=== PATIENT | male | born 1985 | race Hispanic/Latino ===

== ENCOUNTER 2019-09-20 16:43 | Observation (INO) | payer MEDICAID, OTHER ==
[2019-09-20 17:57] LABS: #Basophils 0.1 thou/uL (0.0-0.2); #Eosinphils 0.3 thou/uL (0.0-0.7); #Lymphocytes 1.3 thou/uL (1.20-3.40); #Monocytes 0.5 thou/uL (0.11-0.59); #Neutrophils 8.3 thou/uL (1.40-6.50); %Basophils 0.8 % (0.0-1.0); %Lymphocytes 12.6 % (21.0-51.0); %Monocytes 4.9 % (0.0-10.0); %Neutrophils 78.9 % (42.0-75.0); Hemoglobin 11.6 g/dL (14.0-18.0); Mean Corpuscular HGB CONC 33.7 g/dL (32.0-36.0); Mean Corpuscular Hemoglobin 27.7 pg (27.0-31.0); Mean Corpuscular Volume 82.3 fL (78.0-98.0); Mean Platelet Volume 7.2 fL (7.4-10.4); Platelet Count 453 thou/uL (130-400); RBC Distribution Width 13.4 % (11.5-14.5); Red Blood Cell (RBC) Count 4.19 mill/uL (4.70-6.10); White Blood Cell (WBC) Count 10.6 thou/uL (4.8-10.8)
[2019-09-20 18:08] LABS: ALT (SGPT) 15 U/L (8-55); AST (SGOT) 22 U/L (5-34); Albumin 2.2 g/dL (3.5-5.0); Alkaline Phosphatase 138 U/L (40-110); Anion Gap 12 mmol/L (10-20); BUN (Urea Nitrogen) 20 mg/dL (8.9-20.6); Bilirubin, Total 0.2 mg/dL (0.2-1.2); CK (CPK) 312 U/L (30-200); Calc. Creatinine Clearance 0 mL/min (70-130); Calcium 8.1 mg/dL (7.8-10.44); Carbon Dioxide 22 mmol/L (22-29); Chloride 101 mmol/L (98-107); Estimated GFR-MDRD 37; Globulin 3.2 g/dL (2.4-3.5); Glucose 272 mg/dL (70-105); Lipase 11 U/L (8-78); Potassium 4.8 mmol/L (3.5-5.1); Protein, Total 5.4 g/dL (6.0-8.3); Sodium 130 mmol/L (136-145)
[2019-09-20 18:25] LABS: Acetaminophen Less than 6.0 mcg/mL (10.0-30.0); Alcohol Less than 10 mg/dL (Less than 10); Salicylate Less than 8.0 mg/dL (15.0-30.0)
--- NOTE | 2019-09-20 18:25 | RAD ---
PORTABLE CHEST ONE VIEW: 09/20/19 at 6:08 p.m. HISTORY: Dyspnea. FINDINGS: The heart size is normal. The lungs are expanded without focal areas of consolidation, pneumothoraces or pleural effusions. IMPRESSION: No radiographic evidence of acute cardiopulmonary process. POS: KAYCEEA
--- NOTE | 2019-09-20 19:23 | PDOC.FPRHP ---
- History of Present Illness Chief Complaint: diffuse swelling History of Present Illness: Patient was hospitalized in the [facility] from 09/15 to 09/19 for bright red blood per rectum, anemia, uncontrolled diabetes, and acute renal failure. He states he went to rehab and they noted his BP to be elevated and his blood glucose to be remarkably high and sent him to ED. There he was noted to be FOBT + and complained of bright red blood NC, however he states no scopes or imaging modalities were performed. His hb did drop from 7.9 to 6.4 and he received 2 units of PRBC (1 on 09/15 and 1 on 09/16). He came to the [facility] ER for increasing, diffuse swelling that started acutely at 1700 on 09/19/2019. The swelling is generalized, he complains of the most significant swelling being in his face, but also his abdomen and scrotum. He is complaining of a headache and peeing 2x his normal amount. He states his sugars have been elevated into the 400s. He states his last use of illegal drugs was 15 days ago. He states that his BP has been high. He also states that he was discharged with new medications from the [facility]. Upon review, he was restarted on Lisinopril 10mg, and folic acid and ferrous sulfate were added to his regimen. ED Course: 1g tylenol - Allergies/Adverse Reactions Allergies Allergy/AdvReac Type Severity Reaction Status Date / Time No Known Drug Allergies Allergy Verified 09/20/19 22:13 - Home Medications Medication Instructions Recorded Confirmed Type Amlodipine [Norvasc] 5 mg PO DAILY 09/20/19 09/20/19 History Ferrous Sulfate [Feosol] 325 mg PO DAILY 09/20/19 09/20/19 History Folic Acid [Folvite] 1 mg PO DAILY 09/20/19 09/20/19 History Insulin Detemir [Levemir] 25 unit SQ BID 09/20/19 09/20/19 History Lisinopril 10 mg PO DAILY 09/20/19 09/20/19 History Pantoprazole [Protonix] 40 mg PO DAILY 09/20/19 09/20/19 History Phenytoin Sodium Extended 100 mg PO TID 09/20/19 09/20/19 History - History PMHx: HTN, DM type I, Hx methamphetamine use, unknown seizure disorder PSHx: Right knee surgery, Surgery for forneir's gangrene FHx: Grandmother and grandfather with DM on father's side Social: Patient with substance use. States last used methamphetamines 15 days ago. Patient reports extensive alcohol use but quit 2 years ago. - Review of Systems General: reports: weight/appetite/sleep changes (Increase in weight). denies: fever/chills Eyes: denies: eye pain, vision changes ENT: denies: nasal congestion, rhinorrhea Respiratory: denies: cough, congestion, shortness of breath Cardiovascular: reports: edema. denies: chest pain, palpitation Gastrointestinal: denies: nausea, vomiting, diarrhea, abdominal pain Genitourinary: reports: polyuria. denies: dysuria, discharge Skin: denies: rashes, lesions Musculoskeletal: denies: pain, tenderness Neurological: denies: numbness, syncope Psychological: denies: anxiety, depression - Vital signs 09/20/19 21:09 Temperature 97.9 F Pulse Rate 95 Blood Pressure 181/110 H [Semi-Fowlers] Respiratory 20 Rate O2 Sat by Pulse 97 Oximetry Oxygen Delivery Room Air Method - Physical Exam Constitutional: NAD, awake, alert and oriented -Constitutional: Face is diffusely swollen, eyes are swollen shut HEENT: grossly normal hearing, MMM -HEENT: Cannot examine eyes due to swelling. No erythema or discharge present. Neck: supple, trachea midline, no LAD Heart: RRR, normal S1/S2, no murmurs/rubs/gallops -Heart: Trace edema BLE Lungs: CTAB, no respiratory distress, good air movement Abdomen: soft, non-tender, bowel sounds present Musculoskeletal: normal structure, normal tone Neurological: no focal deficit Skin: no rash/lesions, good turgor Heme/Lymphatic: no unusual bruising or bleeding, no purpura, no petechia Psychiatric: normal mood and affect, good judgment and insight FMR H&P: Results - Labs Result Diagrams: 09/20/19 19:27 09/20/19 16:51 Lab results: WBC 10.6 thou/uL (4.8-10.8) 09/20/19 16:51 Hgb 11.6 g/dL (14.0-18.0) L 09/20/19 16:51 Hct 34.5 % (42.0-52.0) L 09/20/19 16:51 MCV 82.3 fL (78.0-98.0) 09/20/19 16:51 Plt Count 453 thou/uL (130-400) H 09/20/19 16:51 Neutrophils % 78.9 % (42.0-75.0) H 09/20/19 16:51 Sodium 130 mmol/L (136-145) L 09/20/19 16:51 Potassium 4.8 mmol/L (3.5-5.1) 09/20/19 16:51 Chloride 101 mmol/L (98-107) 09/20/19 16:51 Carbon Dioxide 22 mmol/L (22-29) 09/20/19 16:51 BUN 20 mg/dL (8.9-20.6) 09/20/19 16:51 Creatinine 2.05 mg/dL (0.7-1.3) H 09/20/19 16:51 Glucose 272 mg/dL (70-105) H 09/20/19 16:51 Calcium 8.1 mg/dL (7.8-10.44) 09/20/19 16:51 Total Bilirubin 0.2 mg/dL (0.2-1.2) 09/20/19 16:51 AST 22 U/L (5-34) 09/20/19 16:51 ALT 15 U/L (8-55) 09/20/19 16:51 Alkaline Phosphatase 138 U/L (40-110) H 09/20/19 16:51 Ammonia 31 umol/L (18-72) 09/20/19 18:49 Creatine Kinase 312 U/L (30-200) H 09/20/19 16:51 B-Natriuretic Peptide 394.0 pg/mL (0-100) H 09/20/19 16:51 Serum Total Protein 5.4 g/dL (6.0-8.3) L 09/20/19 16:51 Albumin 2.2 g/dL (3.5-5.0) L 09/20/19 16:51 Lipase 11 U/L (8-78) 09/20/19 16:51 - Radiology Interpretation Chest x-ray Status: report reviewed by me (No acute cardiopulmonary process) FMR H&P: A/P - Problem List (1) Seizure disorder Current Visit: Yes Status: Acute Code(s): G40.909 - EPILEPSY, UNSP, NOT INTRACTABLE, WITHOUT STATUS EPILEPTICUS (2) Polysubstance abuse Current Visit: Yes Status: Acute Code(s): F19.10 - OTHER PSYCHOACTIVE SUBSTANCE ABUSE, UNCOMPLICATED (3) Hypertension Current Visit: Yes Status: Acute Code(s): I10 - ESSENTIAL (PRIMARY) HYPERTENSION (4) Diabetes type 1, uncontrolled Current Visit: Yes Status: Acute Code(s): E10.65 - TYPE 1 DIABETES MELLITUS WITH HYPERGLYCEMIA (5) ZEE (acute kidney injury) Current Visit: Yes Status: Acute Code(s): N17.9 - ACUTE KIDNEY FAILURE, UNSPECIFIED (6) Chronic kidney disease Current Visit: Yes Status: Acute Code(s): N18.9 - CHRONIC KIDNEY DISEASE, UNSPECIFIED (7) Anemia Current Visit: Yes Status: Acute Code(s): D64.9 - ANEMIA, UNSPECIFIED - Plan Acute edema: Angioedema d/t Lisinopril vs Transfusion related reaction/edema -Acute onset at 1700 09/19. Not associated with respiratory distress or oropharyngeal swelling. -He had recently been taken off Lisinopril per review of discharge summaries from recent hospitalizations, however he was restarted on it when discharged from [facility]. -Does not appear to be allergic / mast cell mediated. -Will closely monitor vital signs -ESR, CRP, C4 pending -Timing of swelling is not very consistent with transfusion associated circulatory overload, however it is still included in the differential. -DIC Panel revealed elevated D-Dimer, however he does not fit the clinical picture for a PE. Will monitor VS. -BNP elevated, 394. Patient has history of polysubstance abuse. Will order ECHO to rule out HF as contributor to edema. -1 time dose of Lasix for diuresis (elevated BNP, edema, and increase in weight suggest increased fluid status) -1 time dose of Benadryl in case there is an allergic component HTN, poorly controlled -Patient known for non-compliance with medications -Will increase Amlodipine from 5mg to 10mg. -Will discontinue Lisinopril. -Consider adding second agent tomorrow if BP does not improve with diuresis. -Hydralazine 10mg prn q4hr for SBP > 180. Abnormal EKG, with right axis deviation -With BNP of 394 and history of substance abuse, will get ECHO to r/o HF as contributor ZEE on CKD -Baseline Cr difficult to ascertain. Since hospitalization in August he has not returned to Cr < 2. In February-April he was around 1.5. -Cr today 2.05 -Will renally dose medications and monitor with serial BMPs. Gastritis -Scope done 09/12 showed gastritis and gastric polyp. -On protonix 40mg daily Anemia, normocytic -RBC folate and B12 WNL, Iron and TIBC low last hospitalization -Continue iron supplementation, was recently started on folate supplementation, will continue. -Suspect chronic disease as a component vs 2/2 GI bleeding. -Received 2u pRBC 09/15-09/16. Complained of rectal bleeding with wiping. DM type I, uncontrolled -HgA1c 12.2 on 09/15, known poor compliance with medications -Continue Levemir 30 units BID, or equivalent -Moderate SSI, ACHS accuchecks -CC diet -C-peptide <0.1 in 2017 Unknown seizure disorder -Has longstanding history, has been on phenytoin at least since 2017, will continue. Polysubstance abuse -Patient reports last use of meth 15 days ago -UDS negative -Patient neg for HIV, Hepatitis, and Syphilis during most recent hospitalization at [facility] Disposition/LOS: Dispo: Stable, Obs, likely LOS < 48 hours VTE PPX: SCDs, patient has had recent GI bleeding. Code: Full FMR H&P: Upper Level - Pertinent history 33 year old male with frequent hospitalizations in the last month that presents with diffuse swelling, worse in the face. Patient was discharged from [facility] on for upper GI bleed and found to have gastric polyp, gastritis, and hiatal hernia on EGD. Patient's Hg did drop from 10.1 to 7.6, with rebound to 8.3 prior to d/c. No blood products given during that hospitalization. Patient then presented to [facility] (now [facility] the [facility]) for elevated BG. Patient reports that he was at rehab and noted to have a very high BG. He was then sent via EMS to the hospital for further evaluation. His BG during that hospitalization ranged from 76-300. He was discharged on levemir 30 units BID, which is what he was discharged on during [facility] 09/13. Patient's HgA1c was 12.2% , suggesting non-compliance with insulin regimen at home. Patient reports compliance with insulin regimen. Patient's Hg was 7.9 initially but dropped to 6.4. Patient then received 2 units of pRBC's during hospitalization per [facility] notes. Patient reports that he did not have a repeat EGD or colonoscopy done during that hospitalization. He had stool studies done. Patient reports having hemorrhoids. Patient was discharged on 09/19/2019. Patient reports that he started with facial swelling at 17:00 on 09/19/2019. The swelling has progressed and now includes abdomen and legs. He states that he did have scrotal swelling initially, but that has since improved. He is urinating two times more than normal. Patient's weight is also up to 182 Ibs from 151 Ibs from 09/15. Patient denies any associated abdominal pain, N/V/D, shortness of breath, cough , or chest pain. Patient endorses difficulty seeing due to degree of facial swelling. He also endorses headache. - Pertinent findings General: Alert and oriented x3. No acute distress. Resting in bed with lights off. HEENT: Significant periorbital swelling bilaterally. Facial swelling involving cheeks and lips. No apparent involvement of tongue or uvula. Card: Tachycardia, regular rhythm Resp: CTA bilaterally, no acute respiratory distress Ext: Trace bilateral lower extremity swelling Skin: Multiple tattoos. Excoriations on arms. No hives or rashes. - Plan Date/Time: 09/20/191921 IJessica, have evaluated this patient and agree with findings/plan as outlined by paralegal internship resident. Pertinent changes/additions are listed here. Isolated angioedema, suspect 2/2 ANA-I - Significant facial swelling with periorbital swelling, lip swelling; spares tongue and uvula - Sudden onset at 17:00 09/19 - Patient d/c'd home on lisinopril 09/19 after hospitalization - No sign of mast cell mediated or allergic angioedema - Monitor respiratory status closely; no signs of impending respiratory failure at this time - Will discontinue lisinopril and monitor closely; low threshold for intubation if impending respiratory distress seems likely - Will give benadryl x1; although this has not been shown to help with non allergic angioedema - ESR and CRP pending - C4 complement pending - Last blood transfusion was on 09/16, so low suspicion for transfusion associated circulatory overload as this normally happens within 6 hours of transfusion. Additionally, patient is not presenting with respiratory distress suggesting pulmonary edema. CXR with no evidence of fluid overload or pulmonary edema. - TSH WNL, suggesting not related to hypothyroidism - DIC panel with elevated D-dimer and fibrinogen, but otherwise normal; low suspicion for PE given clinical presentation. - BNP elevated at 394. Echo pending to further evaluate if component of heart failure. ZEE on CKD (stage unknown) - Baseline Cr appears to be 1.4, but Cr has been 2.3 since discharge on 09/13 - Cr today 2.05, GFR 37 - Renally dose medications - Continue to monitor - Likely 2/2 uncontrolled HTN and DM type II HTN, uncontrolled - Will adjust home medications - Will d/c lisinopril - Will increase amlodipine to 10 mg per day; likely patient will need additional medication Mixed normocytic anemia - ACD 2/2 chronic kidney disease and iron deficiency anemia 2/2 GI bleed - Patient's hg stable at 11.6/34.5 today - Continue to monitor - Will start on protonix for gastritis Gastritis - Diagnosed during last hospitalization at [facility] on 09/13 via EGD - Will start on protonix - Patient with alcohol abuse history; states quit 2 years ago DM type I, uncontrolled - Suspect poor compliance - HgA1c 12.2% on 09/15 - Continue levemir 30 units BID - Moderate SSI - ACHS accuchecks - CC diet - C-peptide <0.1 on previous visit Right axis deviation on EKG - Will get EKG - Suspect heart strain 2/2 uncontrolled HTN and DM - Will get echo to further evaluate - Patient also has history of methamphetamine abuse Methamphetamine abuse - Patient reports last using 15 days ago - Serum drug screen negative - Urine drug screen pending Thrombocytosis - Likely 2/2 angioedema Multiple tattoos: - Patient neg for HIV, Hepatitis, and Syphilis during previous hospitalizations Seizure disorder: - Continue phenytoin DVT PPX: SCD's (will avoid anticoagulation given recent bleeding episodes) Code Status: Full GI PPX: Protonix Dispo: Stable. Will obs on telemetry. Close monitoring of respiratory status.
[2019-09-20 19:54] LABS: INR-International Normal Ratio 0.9
[2019-09-20 19:55] LABS: D-Dimer Test 2.05 *mcg/mL (0.27-0.43)
[2019-09-20 19:59] LABS: Fibrinogen 508 mg/dL (253-463)
[2019-09-20] MEDS ORDERED: Acetaminophen 500 MG TAB ONE (20:03)
[2019-09-20] MEDS ORDERED: Acetaminophen 325 MG TAB PO PRN (20:09)
[2019-09-20] MEDS ORDERED: Ondansetron ODT 4 MG TAB PO PRN (20:09)
[2019-09-20 20:10] LABS: FSP-Qualitative Normal (Normal)
[2019-09-20 20:11] LABS: Platelet Count 435 thou/uL (130-400)
[2019-09-20] MEDS ORDERED: HumaLOG 300 UNITS/3 ML VIAL SC PRN ×2 (20:16)
[2019-09-20] MEDS ORDERED: Dextrose 50% Abboject 50 ML SYRINGE SLOW IVP PRN (20:16)
[2019-09-20] MEDS ORDERED: Dextrose 5% in Water 1,000 ML IV PRN (20:16)
[2019-09-20 20:17] LABS: Bacteria/HPF None Seen HPF (None Seen); Bilirubin Negative (Negative); Blood, Urine 1+ (Negative); Clarity Clear (Clear); Glucose, Urine (Dipstick) Greater than 1000 mg/dL (Negative); Leukocyte Negative Leu/uL (Negative); Nitrite Negative (Negative); Protein, Urine (Dipstick) 300 mg/dL (Neg-Trace); RBC/HPF 0-3 HPF (0-3); Squamous Epithelial None Seen HPF (0-3); Urobilinogen Normal mg/dL (Less than 2); WBC/HPF 0-3 HPF (0-3)
[2019-09-20 20:28] LABS: Amphetamine Not Detected (NotDetected); Barbiturates Screen Detected (NotDetected); Benzodiazepine Screen Not Detected (NotDetected); Cocaine Metabolite Screen Not Detected (NotDetected); Medtox Control Line Valid? VALID (VALID); Medtox Reader # READER 1; Methadone Not Detected (NotDetected); Methamphetamine Not Detected (NotDetected); Opiate Screen Not Detected (NotDetected); Oxycodone Screen Not Detected (NotDetected); Phencyclidine (PCP) Not Detected (NotDetected); THC/Cannabinoid Screen Not Detected (NotDetected); Tricyclic Screen Not Detected (NotDetected)
[2019-09-20] MEDS ORDERED: diphenhydrAMINE 25 MG CAP PO SCH (20:30)
[2019-09-20] MEDS ORDERED: Furosemide 20 MG/2 ML VIAL SLOW IVP SCH (20:30)
[2019-09-20 21:45] VITALS: BMI 30.3
[2019-09-20] MEDS ORDERED: Amlodipine 10 MG TAB PO SCH (22:15)
[2019-09-20] MEDS: Insulin Glargine 30 UNITS in Pre-Filled Syringe 1 EACH SC SCH (22:28)
[2019-09-21] MEDS: hydrALAZINE 20 MG/ML VIAL SLOW IVP PRN (01:15)
[2019-09-21 05:16] LABS: #Basophils 0.1 thou/uL (0.0-0.2); #Eosinphils 0.3 thou/uL (0.0-0.7); #Lymphocytes 1.4 thou/uL (1.20-3.40); #Monocytes 0.5 thou/uL (0.11-0.59); #Neutrophils 6.1 thou/uL (1.40-6.50); %Basophils 0.8 % (0.0-1.0); %Eosinophils 3.9 % (0.0-10.0); %Lymphocytes 16.7 % (21.0-51.0); %Monocytes 6.4 % (0.0-10.0); %Neutrophils 72.3 % (42.0-75.0); Hemoglobin 10.4 g/dL (14.0-18.0); Mean Corpuscular HGB CONC 33.3 g/dL (32.0-36.0); Mean Corpuscular Hemoglobin 27.8 pg (27.0-31.0); Mean Corpuscular Volume 83.5 fL (78.0-98.0); Mean Platelet Volume 6.6 fL (7.4-10.4); Platelet Count 433 thou/uL (130-400); RBC Distribution Width 13.1 % (11.5-14.5); Red Blood Cell (RBC) Count 3.75 mill/uL (4.70-6.10); White Blood Cell (WBC) Count 8.5 thou/uL (4.8-10.8)
[2019-09-21 05:34] LABS: Anion Gap 9 mmol/L (10-20); BUN (Urea Nitrogen) 19 mg/dL (8.9-20.6); Calc. Creatinine Clearance 65 mL/min (70-130); Calcium 8.1 mg/dL (7.8-10.44); Carbon Dioxide 24 mmol/L (22-29); Chloride 106 mmol/L (98-107); Estimated GFR-MDRD 41; Glucose 181 mg/dL (70-105); Potassium 4.4 mmol/L (3.5-5.1); Sodium 135 mmol/L (136-145)
[2019-09-21] MEDS: Folic Acid 1 MG TAB PO SCH (08:10)
[2019-09-21] MEDS: Amlodipine 10 MG TAB PO SCH (08:10)
[2019-09-21] MEDS: Ferrous Sulfate 325 MG TAB PO SCH (08:10)
[2019-09-21] MEDS ORDERED: Hydrochlorothiazide 25 MG TAB PO SCH (09:00)
[2019-09-21] MEDS: Insulin Glargine 30 UNITS in Pre-Filled Syringe 1 EACH SC SCH ×2 (09:37→20:53)
--- NOTE | 2019-09-21 13:40 | HP ---
I have examined the patient and discussed the case with Dr. Naa George and agree with her assessment and plan. HISTORY OF PRESENT ILLNESS: Mr. Jason is a pleasant 33-year-old male with a history of rectal bleeding, anemia, uncontrolled diabetes. He presented to our ER with facial swelling to the point that his eyes were swollen shut. He had been on lisinopril for CKD. He was admitted with possible angioedema. He had no time evidenced any threatened airway closure. He did not complain of dyspnea or stridor. By the next morning, he felt better although he still had a great deal of periorbital edema that occluded his vision. PHYSICAL EXAMINATION: GENERAL: He is very pleasant, awake and alert. He is in no distress. Again, he has no evidence of respiratory distress or stridor. VITAL SIGNS: His blood pressure is 160/100. His respiratory rate is 18. His room air pulse ox is 97%. EAR, NOSE, and throat. He has bilateral periorbital edema that is nontender. He is unable able to open his eyes to any significant amount. Throat does not show any uvular deviation or edema. NECK: Supple. Cardiac heart rhythm regular. No gallop or murmur noted. LUNGS: Clear without wheezes or rales. He has no evidence of use of accessory muscles. ABDOMEN: Flat and soft without guarding, rebound, or rigidity. NEUROLOGIC: No focal deficits. LABORATORY DATA: [place]: [place] [address], hemoglobin 11.6, hematocrit 34.5 with an MCV of 82.3. His sedimentation rate is elevated at 70. Chemistry: Sodium is 130, potassium 4.8, chloride 101, bicarb 22, BUN 20, creatinine 2.05. Alkaline phosphatase barely elevated at 138. CK very barely elevated at 312, and his troponin is 0.024. ASSESSMENT: Angioedema secondary to NAA inhibitor. PLAN: Supportive care. Continue to observe. As soon as the swelling has abated, we note that this gentleman could see he will be discharged and this will likely be tomorrow. Job ID: [id number]
[2019-09-22] MEDS: hydrALAZINE 20 MG/ML VIAL SLOW IVP PRN (00:13)
--- NOTE | 2019-09-22 05:20 | PDOC.FM ---
- Subjective Subjective: Patient doing well this morning. Still has a somewhat swollen face on left side and reports that he still feels some abdominal distention, but is otherwise improving. - Objective Vital Signs & Weight: Vital Signs (12 hours) Temp Pulse Resp BP BP Pulse Ox 09/22/19 04:00 98.0 F 110 H 18 139/83 98 09/22/19 00:51 112 H 138/72 09/22/19 00:13 106 H 183/106 H 09/22/19 00:09 106 H 18 183/106 H 09/21/19 23:00 97.8 F 102 H 17 190/104 H 97 09/21/19 20:54 175/105 H 09/21/19 19:20 98.1 F 103 H 18 185/101 H 95 Weight Weight 82.554 kg I&O: 09/20/19 09/21/19 09/22/19 06:59 06:59 06:59 Intake Total 900 1040 Output Total 625 Balance 900 415 Result Diagrams: 09/21/19 04:59 09/22/19 04:20 Phys Exam - Physical Examination Constitutional: NAD HEENT: moist MMs, sclera anicteric swollen face, improved Neck: supple, full ROM Respiratory: no wheezing, clear to auscultation bilateral Cardiovascular: RRR, no significant murmur Gastrointestinal: soft, positive bowel sounds slightly distended continued facial edema and abd edema Neurological: non-focal, moves all 4 limbs Deviation from normal: emotionally labile Skin: no rash, normal turgor Dx/Plan (1) Angioedema Code(s): T78.3XXA - ANGIONEUROTIC EDEMA, INITIAL ENCOUNTER Status: Acute (2) ZEE (acute kidney injury) Code(s): N17.9 - ACUTE KIDNEY FAILURE, UNSPECIFIED Status: Acute (3) Chronic kidney disease Code(s): N18.9 - CHRONIC KIDNEY DISEASE, UNSPECIFIED Status: Chronic (4) Diabetes type 1, uncontrolled Code(s): E10.65 - TYPE 1 DIABETES MELLITUS WITH HYPERGLYCEMIA Status: Acute (5) Hypertension Code(s): I10 - ESSENTIAL (PRIMARY) HYPERTENSION Status: Chronic (6) Polysubstance abuse Code(s): F19.10 - OTHER PSYCHOACTIVE SUBSTANCE ABUSE, UNCOMPLICATED Status: Chronic - Plan Plan: Acute edema: Angioedema d/t Lisinopril vs Transfusion related reaction/edema -Acute onset at 1700 09/19. No respiratory distress or oropharyngeal swelling. -Has been on lisinopril lately, likely related -Does not appear to be allergic / mast cell mediated. -Will closely monitor vital signs -ESR elevated -CRP and C4 wnl -Timing of swelling is not very consistent with transfusion associated circulatory overload, however it is still included in the differential. -s/p 1 dose lasix and benadryl HTN, poorly controlled -Patient known for non-compliance with medications -Amlodipine increased from 5mg to 10mg. -Lisinopril discontinued -Started on HCTZ, increase today -Hydralazine 10mg prn q4hr for SBP > 180. Abnormal EKG, with right axis deviation -BNP of 394 -history of substance abuse -echo: EF 55-60%, mild mitral regurg, mild tricuspid regurg ZEE on CKD -Baseline Cr difficult to ascertain. Since hospitalization in August he has not returned to Cr < 2. In February-April he was around 1.5. -Cr today 2.05 -Will renally dose medications and monitor with serial BMPs. Gastritis -Scope done 09/12 showed gastritis and gastric polyp. -Continue protonix 40mg daily Anemia, normocytic -RBC folate and B12 WNL, Iron and TIBC low last hospitalization -Continue iron supplementation, was recently started on folate supplementation, will continue. -Suspect chronic disease as a component vs 2/2 GI bleeding. -Received 2u pRBC 09/15-09/16. Complained of rectal bleeding with wiping. -Will continue to monitor DM type I, uncontrolled -HgA1c 12.2 on 09/15, known poor compliance with medications -Continue Levemir 30 units BID, or equivalent -Moderate SSI, ACHS accuchecks -CC diet -C-peptide <0.1 in 2017 Unknown seizure disorder -Has longstanding history -continue phenytoin Polysubstance abuse -Patient reports last use of meth 15 days ago -UDS negative -Patient neg for HIV, Hepatitis, and Syphilis during most recent hospitalization at [facility] VTE PPX: SCDs, patient has had recent GI bleeding. Dispo: patient's edema has been improving; no respiratory compromise throughout hospitalization. Will possibly d/c today if patient continues to improve Code: Full
[2019-09-22 05:23] LABS: Anion Gap 9 mmol/L (10-20); BUN (Urea Nitrogen) 22 mg/dL (8.9-20.6); Calc. Creatinine Clearance 60 mL/min (70-130); Calcium 7.7 mg/dL (7.8-10.44); Carbon Dioxide 26 mmol/L (22-29); Chloride 108 mmol/L (98-107); Estimated GFR-MDRD 38; Glucose 81 mg/dL (70-105); Potassium 4.1 mmol/L (3.5-5.1); Sodium 139 mmol/L (136-145)
[2019-09-22] MEDS ORDERED: guaiFENesin ER 600 MG TAB PO SCH ×2 (06:00→21:00)
[2019-09-22 08:18] VITALS: TEMP 97.8
[2019-09-22] MEDS: Insulin Glargine 30 UNITS in Pre-Filled Syringe 1 EACH SC SCH (08:28)
[2019-09-22] MEDS: Ferrous Sulfate 325 MG TAB PO SCH (08:29)
[2019-09-22] MEDS: Folic Acid 1 MG TAB PO SCH (08:29)
[2019-09-22] MEDS: Amlodipine 10 MG TAB PO SCH (08:29)
[2019-09-22] MEDS ORDERED: Hydrochlorothiazide 25 MG TAB PO SCH (09:00)
--- NOTE | 2019-09-22 11:19 | PRG ---
DATE OF SERVICE: 09/22/2019 The periorbital edema has greatly improved and Mr. Jason is now able to open both eyes. He is anxious to go home and he will be discharged. Job ID: [id number]
[2019-09-22 11:31] VITALS: BP 163/84
--- NOTE | 2019-09-23 10:23 | DIS ---
DATE OF ADMISSION: 09/20/2019 DATE OF DISCHARGE: 09/22/2019 ADMITTING RESIDENT: Aliya Tomlinson MD. ADMITTING ATTENDING: Salvador Culver MD. DISCHARGE RESIDENT: Naa George MD. DISCHARGE ATTENDING: Salvador Culver MD. CONSULTS: None. PROCEDURES: None. IMAGING: Chest x-ray: No radiographic evidence of acute cardiopulmonary process. Echocardiogram: EF 55% to 60%. Mild mitral regurgitation. Mild tricuspid regurgitation. PRIMARY DIAGNOSES: Angioedema due to lisinopril versus transfusion related reaction/edema. Acute kidney injury on chronic kidney disease. Abnormal EKG with right axis deviation. SECONDARY DIAGNOSES: Poorly controlled hypertension; gastritis; normocytic anemia; type 1 diabetes, uncontrolled; unknown seizure disorder. DISCHARGE MEDICATIONS: 1. 10 mg amlodipine p.o. daily. 2. 325 mg ferrous sulfate p.o. daily. 3. 1 mg folic acid p.o. daily. 4. 25 mg of hydrochlorothiazide p.o. daily. 5. 25 units Levemir subcu b.i.d. 6. 40 mg Protonix p.o. daily. 7. 100 mg phenytoin p.o. t.i.d. DISCONTINUED MEDICATIONS: 1. Lisinopril. 2. P.r.n. Tylenol. 3. Glargine insulin. 4. P.r.n. Zofran. HISTORY OF PRESENT ILLNESS AND HOSPITAL COURSE: The patient is a 33-year-old male with a past medical history of type 1 diabetes, uncontrolled hypertension, polysubstance abuse, anemia with recent workup for GI bleed who was admitted to the hospital for angioedema likely due to recent lisinopril use versus less likely transfusion reaction. The patient was admitted to the [facility] early september for bright red blood per rectum, anemia, and uncontrolled diabetes, and he was given 2 units of packed red blood cells during that time. Due to the time difference between when he got the blood and when he presented to the ER with angioedema, this is less likely to be the cause, however, it still needs to be considered. The patient also was recently started on lisinopril and has been on and off lisinopril in the past, thus this is more likely related to lisinopril use. The patient presented with angioedema of his face, bilateral feet, abdomen, and scrotum. The patient was treated with Lasix and Benadryl and as the patient had no respiratory distress symptoms, was monitored overnight to ensure that he continued to improve without the development of any respiratory symptoms. For his hypertension, HCTZ was added to his medication regimen. When he came into the hospital, his BNP was elevated to 394 and his EKG showed right axis deviation. So an echocardiogram was ordered, see above. The patient was evaluated on the day of discharge, which showed a marked improvement in the edema of his face, abdomen, feet and scrotum. On the day of discharge the patient was stable enough to be discharged home with followup with his primary care provider. DISPOSITION: Stable. DISCHARGE INSTRUCTIONS: 1. Location: Home. 2. Diet: Heart healthy, carb conscious. 3. Activity: As tolerated. 4. Followup: With his primary care provider, Dr. Long at [facility] within 1 week. Job ID: [id number] MTDD
== END 2019-09-22 12:34 | disposition home or self-care (01) ==
LOC: ERS 16:43 → 2SW 19:25
PROVIDERS: ADMIT Emergency Medicine; ATTEND Emergency Medicine
DX: T78.3XXA Angioneurotic edema, initial encounter (principal); I12.9 Hypertensive chronic kidney disease with stage 1 through stage 4 chronic kidney disease, or unspecified chronic kidney disease; E10.22 Type 1 diabetes mellitus with diabetic chronic kidney disease; N18.9 Chronic kidney disease, unspecified; G40.909 Epilepsy, unspecified, not intractable, without status epilepticus; F10.11 Alcohol abuse, in remission; N17.9 Acute kidney failure, unspecified; D63.1 Anemia in chronic kidney disease; F15.10 Other stimulant abuse, uncomplicated; D50.0 Iron deficiency anemia secondary to blood loss (chronic); D47.3 Essential (hemorrhagic) thrombocythemia; Z79.899 Other long term (current) drug therapy
CPT/HCPCS: 36415; 36416; 71045; 80048; 80053; 80306; 80307; 81003; 81015; 82010; 82140; 82550; 83690; 83880; 84443; 84484; 85025; 85049; 85300; 85362; 85379; 85384; 85610; 85652; 85730; 86140; 86160; 87040; 93005; 93306; 96374; 96375; 96376; G0378; J0360; J1815; J1940; Q0163

== ENCOUNTER 2020-10-15 07:56 | Day surgery (SDC) | payer OTHER ==
[2020-10-13 12:57] VITALS: BMI 29.2
[2020-10-15] MEDS ORDERED: Fentanyl 100 MCG/2 ML VIAL ONE ×2 (08:40→09:55)
[2020-10-15 08:43] LABS: #Basophils 0.1 thou/uL (0.0-0.2); #Eosinphils 0.3 thou/uL (0.0-0.7); #Lymphocytes 1.4 thou/uL (1.20-3.40); #Monocytes 0.7 thou/uL (0.11-0.59); #Neutrophils 5.2 thou/uL (1.40-6.50); %Eosinophils 3.7 % (0.0-10.0); %Lymphocytes 18.3 % (21.0-51.0); %Monocytes 8.9 % (0.0-10.0); %Neutrophils 68.1 % (42.0-75.0); Hemoglobin 10.9 g/dL (14.0-18.0); Mean Corpuscular Volume 87.8 fL (78.0-98.0); Mean Platelet Volume 8.3 fL (7.4-10.4); Platelet Count 251 thou/uL (130-400); RBC Distribution Width 15.9 % (11.5-14.5); Red Blood Cell (RBC) Count 3.75 mill/uL (4.70-6.10); White Blood Cell (WBC) Count 7.6 thou/uL (4.8-10.8)
[2020-10-15 09:01] LABS: Anion Gap 12 mmol/L (10-20); BUN (Urea Nitrogen) 35 mg/dL (8.9-20.6); Calc. Creatinine Clearance 23 mL/min (70-130); Calcium 8.4 mg/dL (7.8-10.44); Carbon Dioxide 27 mmol/L (22-29); Chloride 99 mmol/L (98-107); Glucose 267 mg/dL (70-105); Potassium 4.4 mmol/L (3.5-5.1); Sodium 134 mmol/L (136-145)
[2020-10-15] MEDS ORDERED: Dexamethasone 20 MG/5 ML VIAL ONE (09:03)
[2020-10-15] MEDS ORDERED: Ondansetron PF 4 MG/2 ML Vial ONE (09:03)
[2020-10-15] MEDS ORDERED: Bupivacaine HCl 0.5%/Epinephrine 1:200,000/PF 30 ml Vial ONE (09:04)
[2020-10-15] MEDS ORDERED: Bupivacaine 0.25% HCL 30 ML VIAL ONE (09:45)
[2020-10-15] MEDS ORDERED: XYLOCAINE 2%-EPI 1:100,000 20 ML VIAL ONE (09:45)
[2020-10-15] MEDS ORDERED: Lidocaine 2% PF 5 ML VIAL ONE (09:45)
[2020-10-15] MEDS ORDERED: Ioversol 68 % 50 ML VIAL ONE ×2 (09:45→10:41)
[2020-10-15] MEDS ORDERED: Protamine Sulfate 50 MG/5 ML VIAL ONE (09:45)
[2020-10-15] MEDS ORDERED: Heparin 5,000 UNITS/ML VIAL ONE (09:45)
[2020-10-15] MEDS ORDERED: Propofol 1,000 MG/100 ML VIAL IV ONE (09:50)
[2020-10-15] MEDS ORDERED: Propofol 500 MG/50 ML VIAL ONE (09:50)
[2020-10-15] MEDS ORDERED: Midazolam HCl 2 mg/2 ml Vial ONE (09:55)
[2020-10-15] MEDS ORDERED: Heparin 1,000 UNITS/ML VIAL ONE (13:59)
[2020-10-15] MEDS ORDERED: Metoprolol Tartrate 25 MG TAB PO SCH (14:45)
[2020-10-15] MEDS ORDERED: Amlodipine 10 MG TAB PO SCH (14:45)
--- NOTE | 2020-10-15 15:59 | EKG ---
Test Reason : PREOP Blood Pressure : / mmHG Vent. Rate : 085 BPM Atrial Rate : 085 BPM P-R Int : 144 ms QRS Dur : 086 ms QT Int : 386 ms P-R-T Axes : 067 103 084 degrees QTc Int : 459 ms Normal sinus rhythm Rightward axis Borderline ECG Confirmed by DR. Zaynab KNIGHT (3) on 10/15/2020 3:58:54 PM Referred By: ABHISHEK Confirmed By:DR. Zaynab KNIGHT
--- NOTE | 2020-10-15 16:49 | PDOC.OP ---
Operative Note - Operative Note Operative Note: DATE OF PROCEDURE: 10/15/2020 PROCEDURE: Left basilic vein transposition fistula. SURGEON: Tika Naqvi M.D. PREOPERATIVE DIAGNOSIS: End-stage renal failure. POSTOPERATIVE DIAGNOSIS: End-stage renal failure. HISTORY: Patient is a 34-year-old man with end-stage renal failure. He has a left upper arm basilic fistula which requires transposition to be accessible. DESCRIPTION OF PROCEDURE: After informed consent was obtained and appropriate n euromuscular blockade was administered, the patient was taken to the operating room and placed in supine position. The arm was prepped and draped in a standard sterile fashion and adequacy of block was confirmed. The distal basilic vein was dissected out to its confluence with the brachial artery. The basilic vein was then dissected free to the level of its confluence with the axillary vein, ligating side branches as they were encountered. A 12 mm tunneler was obtained and brought up from the antecubital to the axillary area. Heparin was administered systemically and allowed to circulate for 3 minutes. The vein was marked for orientation, clamped and divided obliquely just above the previous anastomosis. The basilic vein was compressed at the level of the axilla and heparinized saline was instilled, distending the vein. The vein was checked for leaks and none were seen. The vein was then flushed with heparinized saline and a bulldog clamp placed at the level of the axilla. The 12 mm tip was removed and a 6 mm tip placed and the basilic vein was secured to this. The basilic vein was drawn down through the subcutaneous tunnel being careful not to twist the vein. This was found easily to reach to the proximal fistula stump. The 2 ends of the fistula were spatulated and an end-to-side anastomosis was created with a running 6-0 Prolene suture with excellent technical result. Prior to completing the anastomosis, the inflow was released, flushing the anastomosis. The anastomosis was then secured, all clamps were removed and hemostasis verified. There was an excellent thrill through the basilic fistula which was readily palpable beneath the skin. The inner arm wound was then irrigated and hemostasis obtained with Bovie electrocautery. The subcutaneous tissues were closed in two layers with 3-0 Monocryl suture following which the skin incision was closed with skin augusto. A surface wound VAC dressing was placed and the arm was wrapped with an Martin wrap. The patient was taken to the recovery room in good condition. Estimated blood loss was minimal. There were no complications. There were no specimens.
== END 2020-10-15 14:55 | disposition home or self-care (01) ==
LOC: SDC 07:56
PROVIDERS: ATTEND Surgery
PROC: 05SC0ZZ Reposition Left Basilic Vein, Open Approach (ICD-10-PCS; principal; 2020-10-15)
DX: I12.0 Hypertensive chronic kidney disease with stage 5 chronic kidney disease or end stage renal disease (principal); E11.22 Type 2 diabetes mellitus with diabetic chronic kidney disease; N18.6 End stage renal disease; F41.9 Anxiety disorder, unspecified; F17.200 Nicotine dependence, unspecified, uncomplicated; E11.42 Type 2 diabetes mellitus with diabetic polyneuropathy; E11.69 Type 2 diabetes mellitus with other specified complication; H54.7 Unspecified visual loss; Z86.73 Personal history of transient ischemic attack (TIA), and cerebral infarction without residual deficits; Z79.4 Long term (current) use of insulin; Z79.899 Other long term (current) drug therapy; Z88.8 Allergy status to other drugs, medicaments and biological substances; Z99.2 Dependence on renal dialysis
CPT/HCPCS: 36415; 36416; 80048; 85025; 93005; 93010; J0690; J1100; J1644; J2001; J2250; J2405; J2704; J2720; J3010; Q9967; S0020

== ENCOUNTER 2021-01-07 14:33 | Outpatient (CLI) | payer OTHER ==
[2020-10-13 05:18] LABS: SARS-CoV-2 PCR by NAA Not Detected (NotDetected)
[2021-01-08 03:28] LABS: SARS-CoV-2 PCR by NAA Not Detected (NotDetected)
== END 2021-01-07 14:34 | disposition home or self-care (01) ==
LOC: LABBT 14:33
PROVIDERS: ATTEND Surgery
DX: Z01.812 Encounter for preprocedural laboratory examination (principal); H33.41 Traction detachment of retina, right eye; Z20.822 Contact with and (suspected) exposure to COVID-19
CPT/HCPCS: 87635; U0003; U0005

== ENCOUNTER 2021-01-11 09:24 | Day surgery (SDC) | payer MEDICARE, MEDICAID ==
[2021-01-10 09:56] VITALS: BMI 28.3
[~2021-01-11 09:24] MED LIST: EPINEPHrine 0.3 MG in Ophthalmic Irrigation Solution 500 ML IRR SCH; Fentanyl 100 MCG/2 ML VIAL ONE; Midazolam HCl 2 mg/2 ml Vial ONE
[2021-01-11] MEDS ORDERED: Insulin Regular 300 UNITS/3 ML VIAL ONE (09:56)
[2021-01-11] MEDS ORDERED: hydrALAZINE 20 MG/ML VIAL ONE (10:37)
[2021-01-11] MEDS ORDERED: Famotidine/PF 20 mg/2ml Vial ONE (10:38)
[2021-01-11] MEDS ORDERED: Cyclopentolate 1% Ophth Drops 15 ML BOT ONE (11:06)
[2021-01-11] MEDS ORDERED: Phenylephrine 2.5% Ophth Soln 5 ML BOT ONE (11:06)
[2021-01-11] MEDS ORDERED: Dextrose 50% Abboject 50 ML SYRINGE ONE (14:18)
[2021-01-11] MEDS ORDERED: Lidocaine 4% PF 5 ML AMP ONE (14:43)
[2021-01-11] MEDS ORDERED: Bupivacaine PF 0.75% SDV 10 ML ONE (14:43)
[2021-01-11] MEDS ORDERED: Ondansetron PF 4 MG/2 ML Vial ONE ×2 (14:43)
[2021-01-11] MEDS ORDERED: Maxitrol 0.1% Opth Oint 3.5 GM TUBE ONE (14:43)
[2021-01-11] MEDS ORDERED: PROPOFOL 200 MG/20 ML VIAL ONE (14:43)
[2021-01-11] MEDS ORDERED: CEFAZOLIN 1 GM VIAL ONE (14:43)
[2021-01-11] MEDS ORDERED: Succinylcholine 200 MG/10 ml SYRINGE FS ONE (14:43)
[2021-01-11] MEDS ORDERED: Triamcinolone 40 MG/ML VIAL ONE (14:43)
[2021-01-11] MEDS ORDERED: Lidocaine 1% PF 5 ML VIAL ONE ×2 (14:43)
[2021-01-11] MEDS ORDERED: Metoclopramide HCl 10 MG/2 ML VIAL ONE ×2 (14:43)
[2021-01-11] MEDS ORDERED: Heparin 1,000 UNITS/ML VIAL ONE (18:08)
== END 2021-01-11 18:55 | disposition home or self-care (01) ==
LOC: SDC 09:24
PROVIDERS: ATTEND Ophthalmology Retina Specialist
PROC: 08T43ZZ Resection of Right Vitreous, Percutaneous Approach (ICD-10-PCS; principal; 2021-01-11)
PROC: 08QE3ZZ Repair Right Retina, Percutaneous Approach (ICD-10-PCS; 2021-01-11)
DX: H33.41 Traction detachment of retina, right eye (principal); H43.11 Vitreous hemorrhage, right eye; Z79.4 Long term (current) use of insulin; Z79.899 Other long term (current) drug therapy; Z88.5 Allergy status to narcotic agent; Z88.8 Allergy status to other drugs, medicaments and biological substances
CPT/HCPCS: 36416; J0171; J0360; J0690; J1644; J1815; J2250; J2405; J2704; J2765; J3010; J3301; J3490; S0028

== ENCOUNTER 2021-01-14 07:37 | Emergency (ER) | payer MEDICARE, MEDICAID ==
[2021-01-14 10:34] LABS: #Basophils 0.1 thou/uL (0.0-0.2); #Eosinphils 0.2 thou/uL (0.0-0.7); #Monocytes 0.5 thou/uL (0.11-0.59); #Neutrophils 3.5 thou/uL (1.40-6.50); %Basophils 1.2 % (0.0-1.0); %Eosinophils 4.3 % (0.0-10.0); %Lymphocytes 18.4 % (21.0-51.0); %Monocytes 9.1 % (0.0-10.0); %Neutrophils 66.9 % (42.0-75.0); Hemoglobin 9.3 g/dL (14.0-18.0); Mean Corpuscular HGB CONC 33.1 g/dL (32.0-36.0); Mean Corpuscular Hemoglobin 28.7 pg (27.0-31.0); Mean Corpuscular Volume 86.6 fL (78.0-98.0); Mean Platelet Volume 7.2 fL (7.4-10.4); Platelet Count 266 thou/uL (130-400); RBC Distribution Width 12.4 % (11.5-14.5); Red Blood Cell (RBC) Count 3.23 mill/uL (4.70-6.10); White Blood Cell (WBC) Count 5.2 thou/uL (4.8-10.8)
[2021-01-14 10:55] LABS: ALT (SGPT) 11 U/L (8-55); AST (SGOT) 11 U/L (5-34); Albumin 3.2 g/dL (3.5-5.0); Alkaline Phosphatase 213 U/L (40-110); Anion Gap 12 mmol/L (10-20); BUN (Urea Nitrogen) 26 mg/dL (8.9-20.6); Bilirubin, Total 0.3 mg/dL (0.2-1.2); Calc. Creatinine Clearance 0 mL/min (70-130); Carbon Dioxide 30 mmol/L (22-29); Chloride 96 mmol/L (98-107); Globulin 3.2 g/dL (2.4-3.5); Glucose 331 mg/dL (70-105); Potassium 3.6 mmol/L (3.5-5.1); Protein, Total 6.4 g/dL (6.0-8.3); Sodium 134 mmol/L (136-145)
[2021-01-14] MEDS ORDERED: Heparin 10,000 UNITS/ 10 ML VIAL ONE (14:49)
== END 2021-01-14 15:02 | disposition home or self-care (01) ==
LOC: ERS 07:37
DX: E87.70 Fluid overload, unspecified (principal); E11.22 Type 2 diabetes mellitus with diabetic chronic kidney disease; I12.0 Hypertensive chronic kidney disease with stage 5 chronic kidney disease or end stage renal disease; N18.6 End stage renal disease; E78.00 Pure hypercholesterolemia, unspecified; Z79.4 Long term (current) use of insulin; Z79.899 Other long term (current) drug therapy
CPT/HCPCS: 80053; 85025; 90935; 93005; G0257; J1644

== ENCOUNTER 2021-06-11 01:36 | Emergency (ER) | payer MEDICARE, MEDICAID | END 2021-06-11 02:50 | disposition home or self-care (01) | LOC: ERS 01:36 | DX: E10.649 Type 1 diabetes mellitus with hypoglycemia without coma (principal); I12.0 Hypertensive chronic kidney disease with stage 5 chronic kidney disease or end stage renal disease; N18.6 End stage renal disease; Z99.2 Dependence on renal dialysis; E10.22 Type 1 diabetes mellitus with diabetic chronic kidney disease; E78.00 Pure hypercholesterolemia, unspecified; F17.210 Nicotine dependence, cigarettes, uncomplicated; Z79.899 Other long term (current) drug therapy | CPT/HCPCS: 36416; 99285 ==

== ENCOUNTER 2021-07-22 12:23 | Emergency (ER) | payer MEDICARE, MEDICAID ==
[2021-07-22] MEDS ORDERED: Dextrose 50% Abboject 50 ML SYRINGE ONE (12:44)
[2021-07-22 13:00] LABS: #Basophils 0.1 thou/uL (0.0-0.2); #Eosinphils 0.3 thou/uL (0.0-0.7); #Lymphocytes 1.7 thou/uL (1.20-3.40); #Monocytes 0.8 thou/uL (0.11-0.59); #Neutrophils 6.8 thou/uL (1.40-6.50); %Eosinophils 3.3 % (0.0-10.0); %Lymphocytes 17.2 % (21.0-51.0); %Monocytes 7.9 % (0.0-10.0); %Neutrophils 70.6 % (42.0-75.0); Hemoglobin 14.8 g/dL (14.0-18.0); Mean Corpuscular HGB CONC 34.7 g/dL (32.0-36.0); Mean Corpuscular Volume 89.4 fL (78.0-98.0); Mean Platelet Volume 7.4 fL (7.4-10.4); Platelet Count 377 thou/uL (130-400); RBC Distribution Width 12.6 % (11.5-14.5); Red Blood Cell (RBC) Count 4.78 mill/uL (4.70-6.10); White Blood Cell (WBC) Count 9.7 thou/uL (4.8-10.8)
[2021-07-22 13:21] LABS: ALT (SGPT) 20 U/L (8-55); AST (SGOT) 20 U/L (5-34); Acetaminophen Less than 6.0 mcg/mL (10.0-30.0); Albumin 4.6 g/dL (3.5-5.0); Alcohol Less than 10 mg/dL (Less than 10); Alkaline Phosphatase 129 U/L (40-110); Anion Gap 18 mmol/L (10-20); BUN (Urea Nitrogen) 42 mg/dL (8.9-20.6); Bilirubin, Total 0.4 mg/dL (0.2-1.2); Calc. Creatinine Clearance 0 mL/min (70-130); Calcium 10.2 mg/dL (7.8-10.44); Carbon Dioxide 25 mmol/L (22-29); Chloride 98 mmol/L (98-107); Globulin 3.9 g/dL (2.4-3.5); Potassium 4.4 mmol/L (3.5-5.1); Protein, Total 8.5 g/dL (6.0-8.3); Salicylate Less than 8.0 mg/dL (15.0-30.0); Sodium 137 mmol/L (136-145)
[2021-07-22 13:27] LABS: Glucose 35 mg/dL (70-105)
== END 2021-07-22 14:25 | disposition home or self-care (01) ==
LOC: ERS 12:23
DX: E10.649 Type 1 diabetes mellitus with hypoglycemia without coma (principal); I12.0 Hypertensive chronic kidney disease with stage 5 chronic kidney disease or end stage renal disease; E10.22 Type 1 diabetes mellitus with diabetic chronic kidney disease; N18.6 End stage renal disease; F17.210 Nicotine dependence, cigarettes, uncomplicated; Z99.2 Dependence on renal dialysis
CPT/HCPCS: 36416; 71045; 80053; 80307; 84443; 85025; 93005

== ENCOUNTER 2021-08-08 05:10 | Inpatient (IN) | payer MEDICARE, MEDICAID ==
[~2021-08-08 05:10] MED LIST changes: -EPINEPHrine 0.3 MG in Ophthalmic Irrigation Solution 500 ML IRR SCH; -Fentanyl 100 MCG/2 ML VIAL ONE; +Heparin 10,000 UNITS/ 10 ML VIAL ONE; -Midazolam HCl 2 mg/2 ml Vial ONE
[2021-08-08] MEDS ORDERED: levETIRAcetam in NS 100 ML ONE (05:17)
[2021-08-08 05:46] LABS: #Basophils 0.1 thou/uL (0.0-0.2); #Eosinphils 0.3 thou/uL (0.0-0.7); #Lymphocytes 1.6 thou/uL (1.20-3.40); #Monocytes 0.8 thou/uL (0.11-0.59); #Neutrophils 4.4 thou/uL (1.40-6.50); %Basophils 1.2 % (0.0-1.0); %Eosinophils 4.2 % (0.0-10.0); %Lymphocytes 21.8 % (21.0-51.0); %Monocytes 11.1 % (0.0-10.0); %Neutrophils 61.7 % (42.0-75.0); Hemoglobin 11.3 g/dL (14.0-18.0); Mean Corpuscular HGB CONC 33.7 g/dL (32.0-36.0); Mean Corpuscular Hemoglobin 30.6 pg (27.0-31.0); Mean Corpuscular Volume 90.7 fL (78.0-98.0); Mean Platelet Volume 6.8 fL (7.4-10.4); Platelet Count 275 thou/uL (130-400); RBC Distribution Width 12.2 % (11.5-14.5); Red Blood Cell (RBC) Count 3.71 mill/uL (4.70-6.10); White Blood Cell (WBC) Count 7.1 thou/uL (4.8-10.8)
[2021-08-08 06:11] LABS: ALT (SGPT) 16 U/L (8-55); AST (SGOT) 15 U/L (5-34); Albumin 3.6 g/dL (3.5-5.0); Alkaline Phosphatase 124 U/L (40-110); Anion Gap 19 mmol/L (10-20); BUN (Urea Nitrogen) 49 mg/dL (8.9-20.6); Bilirubin, Total 0.3 mg/dL (0.2-1.2); CK (CPK) 65 U/L (30-200); Calc. Creatinine Clearance 0 mL/min (70-130); Calcium 8.8 mg/dL (7.8-10.44); Carbon Dioxide 22 mmol/L (22-29); Chloride 96 mmol/L (98-107); Globulin 3.6 g/dL (2.4-3.5); Lipase 88 U/L (8-78); Potassium 3.9 mmol/L (3.5-5.1); Protein, Total 7.2 g/dL (6.0-8.3); Sodium 133 mmol/L (136-145)
[2021-08-08 06:23] LABS: Glucose 46 mg/dL (70-105)
[2021-08-08] MEDS ORDERED: Dextrose 50% Abboject 50 ML SYRINGE ONE (06:25)
[2021-08-08 06:31] LABS: CKMB 4.5 ng/mL (0-6.6)
[2021-08-08] MEDS ORDERED: Aspirin Chewable 81 MG TAB ONE (06:46)
[2021-08-08 07:28] LABS: Troponin I 0.205 ng/mL (< 0.028)
[2021-08-08] MEDS ORDERED: Acetaminophen 325 MG TAB PO PRN (08:59)
[2021-08-08 10:20] LABS: Troponin I 0.172 ng/mL (< 0.028)
[2021-08-08] MEDS ORDERED: Lantus 1000 UNITS/10 ML VIAL SC SCH ×3 (10:30→21:00)
[2021-08-08] MEDS ORDERED: hydrALAZINE 20 MG/ML VIAL SLOW IVP PRN (11:05)
[2021-08-08] MEDS ORDERED: Dextrose 5% in Water 1,000 ML IV PRN (11:15)
[2021-08-08] MEDS ORDERED: HumaLOG 300 UNITS/3 ML VIAL SC PRN ×3 (11:15→17:49)
[2021-08-08] MEDS ORDERED: Dextrose 50% Abboject 50 ML SYRINGE SLOW IVP PRN (11:15)
[2021-08-08] MEDS ORDERED: hydrALAZINE 20 MG/ML VIAL ONE (11:20)
[2021-08-08] MEDS ORDERED: Nitroglycerin 0.4 MG TAB (25 Tab Bottle) SL PRN (12:16)
[2021-08-08] MEDS ORDERED: Ondansetron ODT 4 MG TAB PO PRN (12:23)
[2021-08-08] MEDS ORDERED: Ondansetron PF 4 MG/2 ML Vial IVP PRN (12:23)
[2021-08-08 13:37] LABS: Troponin I 0.149 ng/mL (< 0.028)
[2021-08-08 13:44] LABS: Glucose 773 mg/dL (70-105)
[2021-08-08 14:26] VITALS: BMI 25.6
[2021-08-08] MEDS ORDERED: HUMULIN R 100 UNITS in Sodium Chloride 0.9% 100 ML IVPB SCH ×2 (14:30→17:30)
[2021-08-08 15:58] LABS: Anion Gap 21 mmol/L (10-20); BUN (Urea Nitrogen) 64 mg/dL (8.9-20.6); Calc. Creatinine Clearance 11 mL/min (70-130); Calcium 8.5 mg/dL (7.8-10.44); Carbon Dioxide 21 mmol/L (22-29); Chloride 88 mmol/L (98-107); Glucose 724 mg/dL (70-105); Potassium 6.2 mmol/L (3.5-5.1); Sodium 124 mmol/L (136-145)
[2021-08-08] MEDS: Heparin 5,000 UNITS/ML VIAL SC SCH ×2 (16:06→22:23)
[2021-08-08] MEDS ORDERED: HumaLOG 300 UNITS/3 ML VIAL SC SCH (16:15)
[2021-08-08] MEDS: cloNIDine 0.2 MG TAB PO SCH (22:22)
[2021-08-08] MEDS: Metoclopramide HCl 10 MG TAB PO SCH (22:24)
[2021-08-08 22:39] LABS: Anion Gap 15 mmol/L (10-20); BUN (Urea Nitrogen) 7 mg/dL (8.9-20.6); Calc. Creatinine Clearance 56 mL/min (70-130); Calcium 9.7 mg/dL (7.8-10.44); Carbon Dioxide 31 mmol/L (22-29); Chloride 97 mmol/L (98-107); Glucose 143 mg/dL (70-105); Potassium 3.2 mmol/L (3.5-5.1); Sodium 140 mmol/L (136-145)
[2021-08-08] MEDS ORDERED: Potassium Chloride 20 MEQ TAB PO SCH (23:15)
[2021-08-09] MEDS ORDERED: Labetalol HCl 100 MG/20 ML VIAL SLOW IVP SCH (00:30)
[2021-08-09 01:19] VITALS: BP 179/109
[2021-08-09 04:08] LABS: Anion Gap 18 mmol/L (10-20); BUN (Urea Nitrogen) 24 mg/dL (8.9-20.6); Calc. Creatinine Clearance 20 mL/min (70-130); Calcium 9.3 mg/dL (7.8-10.44); Carbon Dioxide 25 mmol/L (22-29); Chloride 101 mmol/L (98-107); Glucose 122 mg/dL (70-105); Potassium 4.5 mmol/L (3.5-5.1); Sodium 139 mmol/L (136-145)
[2021-08-09 07:51] VITALS: TEMP 97.6
[2021-08-09] MEDS: cloNIDine 0.2 MG TAB PO SCH (07:57)
[2021-08-09] MEDS: Metoclopramide HCl 10 MG TAB PO SCH (07:57)
[2021-08-09] MEDS: Heparin 5,000 UNITS/ML VIAL SC SCH (07:58)
[2021-08-09] MEDS ORDERED: Enoxaparin Sodium 30 MG/0.3 ML SYRINGE SC SCH (09:00)
[2021-08-09] MEDS ORDERED: Enoxaparin Sodium 40 MG/0.4 ML SYRINGE SC SCH (09:00)
[2021-08-09] MEDS ORDERED: Lantus 1000 UNITS/10 ML VIAL SC SCH ×2 (09:00)
[2021-08-09] MEDS ORDERED: Amlodipine 10 MG TAB PO SCH (09:00)
[2021-08-09] MEDS ORDERED: Regadenoson 0.4 MG/5 ML SYRINGE ONE (10:50)
[2021-08-10 10:17] LABS: SARS-CoV-2 PCR by NAA Not Detected (NotDetected)
== END 2021-08-09 13:46 | disposition home or self-care (01) | DRG 638 ==
LOC: ERS 05:10 → ERHOLD 08:09 → 2SW 12:08 → OBSVTOIN 13:56 → IMCU/EMU 16:32
PROVIDERS: ADMIT Internal Medicine Nephrology; ATTEND Internal Medicine Nephrology
PROC: 5A1D70Z Performance of Urinary Filtration, Intermittent, Less than 6 Hours Per Day (ICD-10-PCS; principal; 2021-08-08)
DX: E10.649 Type 1 diabetes mellitus with hypoglycemia without coma (principal); E87.1 Hypo-osmolality and hyponatremia; Z20.822 Contact with and (suspected) exposure to COVID-19; N18.6 End stage renal disease; E10.22 Type 1 diabetes mellitus with diabetic chronic kidney disease; H54.8 Legal blindness, as defined in USA; J44.9 Chronic obstructive pulmonary disease, unspecified; K21.9 Gastro-esophageal reflux disease without esophagitis; E10.43 Type 1 diabetes mellitus with diabetic autonomic (poly)neuropathy; K31.84 Gastroparesis; E10.42 Type 1 diabetes mellitus with diabetic polyneuropathy; D63.1 Anemia in chronic kidney disease; F17.210 Nicotine dependence, cigarettes, uncomplicated; Z99.2 Dependence on renal dialysis; Z87.820 Personal history of traumatic brain injury; Z88.6 Allergy status to analgesic agent; Z88.8 Allergy status to other drugs, medicaments and biological substances; Z79.4 Long term (current) use of insulin; Z79.899 Other long term (current) drug therapy
CPT/HCPCS: 36415; 36416; 71045; 78452; 80048; 80053; 80185; 82010; 82550; 82553; 83690; 83880; 84484; 85025; 90935; 93005; 93017; 96365; 96375; A9500; G0257; G0378; J0360; J1644; J1815; J1953; J2785; U0003; U0005

== ENCOUNTER 2023-04-22 19:56 | Inpatient (IN) | payer MEDICARE, MEDICAID ==
[~2023-04-22 19:56] MED LIST changes: -Heparin 10,000 UNITS/ 10 ML VIAL ONE; +Iopamidol-370 76% 500 ML MDV (1 ML CHARGE) ONE
[2023-04-22 20:13] LABS: #Eosinphils 0.2 thou/uL (0.0-0.7); #Monocytes 0.7 thou/uL (0.11-0.59); #Neutrophils 3.9 thou/uL (1.40-6.50); %Basophils 0.5 % (0.0-1.0); %Eosinophils 2.7 % (0.0-10.0); %Lymphocytes 13.1 % (21.0-51.0); %Monocytes 12.2 % (0.0-10.0); %Neutrophils 71.3 % (42.0-75.0); Hematocrit 51.8 % (42.0-52.0); Hemoglobin 16.3 g/dL (14.0-18.0); Mean Corpuscular HGB CONC 31.5 g/dL (32.0-36.0); Mean Corpuscular Hemoglobin 26.5 pg (27.0-31.0); Mean Corpuscular Volume 84.2 fl (78.0-98.0); Mean Platelet Volume 10.4 fL (7.4-10.4); Platelet Count 191 10x3/uL (130-400); RBC Distribution Width 16.9 % (11.5-14.5); Red Blood Cell (RBC) Count 6.15 mill/uL (4.70-6.10); White Blood Cell (WBC) Count 5.5 10x3/uL (4.8-10.8)
[2023-04-22 20:23] LABS: Prothrombin Time 13.4 sec (12.0-14.7)
[2023-04-22 20:24] LABS: PTT 24.5 sec (22.9-36.1)
[2023-04-22 20:36] LABS: Actual Bicarbonate (HCO3v) 24.6 mEq/L (22-28); Base Excess -2.1 mEq/L (-2.0 to +3.0); Calcium, Ionized (venous) 1.03 mmol/L (1.16-1.32); Chloride (VBG) 93 mmol/L (98-106); Hematocrit-VBG 49 % (42.0-52.0); Hemoglobin (Hb) 16.7 g/dL (13.2-17.3); Potassium (VBG) 4.95 mmol/L (3.70-5.30); Sodium 131.5 mmol/L (133-146); pH (venous) 7.321 (7.32-7.43)
[2023-04-22 20:37] LABS: ALT (SGPT) 15 U/L (8-55); AST (SGOT) 12 U/L (5-34); Alkaline Phosphatase 229 U/L (40-110); Anion Gap 18 mmol/L (10-20); BUN (Urea Nitrogen) 36 mg/dL (8.9-20.6); Bilirubin, Total 0.4 mg/dL (0.2-1.2); CK (CPK) 86 U/L (30-200); Calc. Creatinine Clearance 0 mL/min (70-130); Calcium 8.3 mg/dL (7.8-10.44); Carbon Dioxide 26 mmol/L (22-29); Chloride 94 mmol/L (98-107); Estimated GFR 9; Globulin 3.3 g/dL (2.4-3.5); Glucose 395 mg/dL (70-105); Potassium 4.7 mmol/L (3.5-5.1); Protein, Total 7.3 g/dL (6.0-8.3); Sodium 133 mmol/L (136-145)
[2023-04-22 20:58] LABS: Acetaminophen Less than 10 mcg/mL (10.0-30.0); Alcohol 57.3 mg/dL (Less than 10); Salicylate Less than 8.0 mg/dL (15.0-30.0)
[2023-04-22] MEDS ORDERED: Ondansetron PF 4 MG/2 ML Vial ONE (21:05)
[2023-04-22 22:46] LABS: CKMB 4.4 ng/mL (0-6.6)
[2023-04-22 23:26] LABS: Lactic Acid 1.7 mmol/L (0.5-2.2)
[2023-04-23] MEDS ORDERED: Ondansetron ODT 4 MG TAB SL PRN (02:00)
[2023-04-23] MEDS ORDERED: Ondansetron PF 4 MG/2 ML Vial IVP PRN (02:00)
[2023-04-23] MEDS ORDERED: Acetaminophen 325 MG TAB PO PRN (02:00)
[2023-04-23 02:19] VITALS: BMI 27.7
[2023-04-23] MEDS ORDERED: Lorazepam 2 MG/ML VIAL SLOW IVP PRN (03:58)
[2023-04-23] MEDS ORDERED: hydrALAZINE 20 MG/ML VIAL SLOW IVP PRN (04:14)
[2023-04-23] MEDS ORDERED: hydrALAZINE 20 MG/ML VIAL SLOW IVP SCH (04:15)
[2023-04-23] MEDS ORDERED: Glucagon 1 MG/ML KIT IM PRN (04:39)
[2023-04-23] MEDS ORDERED: HumaLOG 300 UNITS/3 ML VIAL SC PRN ×2 (04:39)
[2023-04-23] MEDS ORDERED: Dextrose 5% in Water 1,000 ML IV PRN (04:39)
[2023-04-23] MEDS ORDERED: Dextrose 50% Abboject 50 ML SYRINGE SLOW IVP PRN (04:39)
[2023-04-23 05:26] LABS: #Eosinphils 0.1 thou/uL (0.0-0.7); #Neutrophils 6.6 thou/uL (1.40-6.50); %Basophils 0.5 % (0.0-1.0); %Eosinophils 1.6 % (0.0-10.0); %Lymphocytes 11.1 % (21.0-51.0); %Monocytes 11.4 % (0.0-10.0); %Neutrophils 75.1 % (42.0-75.0); Hematocrit 52.4 % (42.0-52.0); Hemoglobin 16.1 g/dL (14.0-18.0); Mean Corpuscular HGB CONC 30.7 g/dL (32.0-36.0); Mean Corpuscular Hemoglobin 26.2 pg (27.0-31.0); Mean Corpuscular Volume 85.3 fl (78.0-98.0); Mean Platelet Volume 10.5 fL (7.4-10.4); Platelet Count 213 10x3/uL (130-400); Red Blood Cell (RBC) Count 6.14 mill/uL (4.70-6.10); White Blood Cell (WBC) Count 8.8 10x3/uL (4.8-10.8)
[2023-04-23] MEDS ORDERED: ADMIXTURE FEE IVPB ONE (05:44)
[2023-04-23] MEDS ORDERED: FUROSEMIDE IVPB ONE (05:44)
[2023-04-23] MEDS ORDERED: SODIUM CHLORIDE IVPB ONE (05:44)
[2023-04-23 05:46] LABS: Dilantin 5.7 ug/mL (10.0-20.0)
[2023-04-23 05:51] LABS: Anion Gap 18 mmol/L (10-20); BUN (Urea Nitrogen) 40 mg/dL (8.9-20.6); Calc. Creatinine Clearance 15 mL/min (70-130); Calcium 8.3 mg/dL (7.8-10.44); Carbon Dioxide 20 mmol/L (22-29); Chloride 102 mmol/L (98-107); Estimated GFR 9; Magnesium 2.4 mg/dL (1.6-2.6); Phosphorus 7.2 mg/dL (2.3-4.7); Potassium 5.3 mmol/L (3.5-5.1); Sodium 135 mmol/L (136-145)
[2023-04-23 05:57] LABS: Glucose 47 mg/dL (70-105)
[2023-04-23] MEDS ORDERED: Metoclopramide HCl 10 MG TAB PO PRN (08:42)
[2023-04-23] MEDS ORDERED: Non-Formulary Item 1 EACH (Famotidine [Famotidine] 40 MG Tablet) PO SCH (09:00)
[2023-04-23] MEDS ORDERED: Non-Formulary Item 1 EACH (Carvedilol [Carvedilol] 12.5 MG Tablet) PO SCH (09:00)
[2023-04-23] MEDS ORDERED: Carvedilol 6.25 MG TAB PO SCH (09:00)
[2023-04-23] MEDS ORDERED: Heparin 10,000 UNITS/ 10 ML VIAL ONE (09:10)
[2023-04-23] MEDS: Phenytoin Extended Release 100 MG CAP PO SCH ×2 (09:34→20:43)
[2023-04-23] MEDS: Multivit, Therapeutic 1 TAB PO SCH (09:34)
[2023-04-23] MEDS: Folic Acid 1 MG TAB PO SCH (09:35)
[2023-04-23] MEDS: Amlodipine 10 MG TAB PO SCH (09:35)
[2023-04-23] MEDS: Famotidine 20 MG TAB PO SCH (09:35)
[2023-04-23] MEDS: Thiamine 100 MG TAB PO SCH (09:53)
[2023-04-23] MEDS: chlordiazePOXIDE HCl 25 MG CAP PO SCH ×2 (10:15→18:27)
[2023-04-23] MEDS ORDERED: chlordiazePOXIDE HCl 25 MG CAP PO SCH ×2 (12:00→14:00)
[2023-04-23] MEDS ORDERED: Fosphenytoin Sodium 1,200 MG in Sodium Chloride 0.9% 50 ML IVPB SCH (12:00)
[2023-04-23] MEDS: Mometasone 200 MCG/Formoterol 5 MCG 120 PUFF INHALER INH SCH (19:00)
[2023-04-23] MEDS: Gabapentin 100 MG CAP PO SCH (20:42)
[2023-04-23] MEDS: cloNIDine 0.2 MG TAB PO SCH (20:43)
[2023-04-23] MEDS: Carvedilol 25 MG TAB PO SCH (20:44)
[2023-04-24] MEDS: chlordiazePOXIDE HCl 25 MG CAP PO SCH (01:36)
[2023-04-24 05:50] LABS: #Eosinphils 0.1 thou/uL (0.0-0.7); #Monocytes 0.7 thou/uL (0.11-0.59); %Basophils 0.4 % (0.0-1.0); %Eosinophils 1.2 % (0.0-10.0); %Lymphocytes 7.6 % (21.0-51.0); %Monocytes 7.5 % (0.0-10.0); %Neutrophils 83.1 % (42.0-75.0); Hemoglobin 15.5 g/dL (14.0-18.0); Mean Corpuscular HGB CONC 30.4 g/dL (32.0-36.0); Mean Corpuscular Hemoglobin 26.2 pg (27.0-31.0); Mean Corpuscular Volume 86.3 fl (78.0-98.0); Mean Platelet Volume 10.6 fL (7.4-10.4); Platelet Count 188 10x3/uL (130-400); RBC Distribution Width 16.7 % (11.5-14.5); Red Blood Cell (RBC) Count 5.91 mill/uL (4.70-6.10); White Blood Cell (WBC) Count 9.6 10x3/uL (4.8-10.8)
[2023-04-24 06:13] LABS: Anion Gap 20 mmol/L (10-20); BUN (Urea Nitrogen) 31 mg/dL (8.9-20.6); Calc. Creatinine Clearance 15 mL/min (70-130); Calcium 8.1 mg/dL (7.8-10.44); Carbon Dioxide 21 mmol/L (22-29); Chloride 99 mmol/L (98-107); Estimated GFR 9; Glucose 184 mg/dL (70-105); Potassium 5.5 mmol/L (3.5-5.1); Sodium 134 mmol/L (136-145)
[2023-04-24] MEDS: Mometasone 200 MCG/Formoterol 5 MCG 120 PUFF INHALER INH SCH ×2 (08:30→18:13)
[2023-04-24] MEDS ORDERED: Insulin Glargine 30 UNITS/0.3 ML VIAL SC SCH (09:00)
[2023-04-24] MEDS ORDERED: Torsemide 100 MG TAB PO SCH (09:00)
[2023-04-24] MEDS ORDERED: Heparin 10,000 UNITS/ 10 ML VIAL ONE (09:13)
[2023-04-24 09:17] LABS: Actual Bicarbonate (HCO3a) 23.8 mEq/L (22-28); Base Excess (BEa) -2.9 mEq/L (-2.0 to +3.0); CO2 Tension 48.2 mmHg (35.0-45.0); Calcium, Ionized (arterial) 1.08 mmol/L (1.12-1.30); Hematocrit-ABG 46 % (42.0-52.0); Hemoglobin (Hb) 15.6 g/dL (14.0-18.0); O2 Tension (PaO2), arterial 75.9 mmHg (80.0-100.0); Potassium - ABG Lab 5.55 mmol/L (3.70-5.30); Puncture Site RRA; pH, Arterial 7.311 (7.35-7.45)
[2023-04-24] MEDS: Folic Acid 1 MG TAB PO SCH (09:20)
[2023-04-24] MEDS: Famotidine 20 MG TAB PO SCH (09:20)
[2023-04-24] MEDS: Amlodipine 10 MG TAB PO SCH (09:20)
[2023-04-24] MEDS: Phenytoin Extended Release 100 MG CAP PO SCH (09:20)
[2023-04-24] MEDS: Multivit, Therapeutic 1 TAB PO SCH (09:20)
[2023-04-24] MEDS: Carvedilol 25 MG TAB PO SCH (09:21)
[2023-04-24] MEDS: Gabapentin 100 MG CAP PO SCH (09:21)
[2023-04-24] MEDS: cloNIDine 0.2 MG TAB PO SCH ×2 (09:22→10:11)
[2023-04-24] MEDS: Thiamine 100 MG TAB PO SCH (09:25)
[2023-04-24] MEDS ORDERED: HumaLOG 300 UNITS/3 ML VIAL SC PRN (10:04)
[2023-04-24 11:58] VITALS: BP 150/81; TEMP 97.3
[2023-04-24] MEDS ORDERED: chlordiazePOXIDE HCl 25 MG CAP PO SCH ×2 (12:00→20:00)
[2023-04-24 14:35] LABS: Reference Lab Name LABCORP
[2023-04-24 14:48] LABS: Reference Lab Name LABCORP
[2023-04-24 17:26] LABS: Campy jejuni + coli by PCR Negative (Negative); STEC Shiga Toxin 1+2 Negative (Negative); Salmonella spp. by PCR Negative (Negative); Shigella spp + EIEC by PCR Negative (Negative)
[2023-04-24] MEDS ORDERED: Atorvastatin Calcium 40 MG TAB PO SCH (21:00)
== END 2023-04-24 18:55 | disposition left against medical advice (07) | DRG 100 ==
LOC: ERS 19:56 → 2SE 04-23 00:29 → OBSVTOIN 04-24 12:39
PROVIDERS: ADMIT Family Medicine; ATTEND Family Medicine
PROC: HZ2ZZZZ Detoxification Services for Substance Abuse Treatment (ICD-10-PCS; principal; 2023-04-24)
PROC: 4A133R1 Monitoring of Arterial Saturation, Peripheral, Percutaneous Approach (ICD-10-PCS; 2023-04-24)
DX: G40.909 Epilepsy, unspecified, not intractable, without status epilepticus (principal); J96.01 Acute respiratory failure with hypoxia; N18.6 End stage renal disease; I12.0 Hypertensive chronic kidney disease with stage 5 chronic kidney disease or end stage renal disease; E87.1 Hypo-osmolality and hyponatremia; F10.132 Alcohol abuse with withdrawal with perceptual disturbance; K21.9 Gastro-esophageal reflux disease without esophagitis; F17.210 Nicotine dependence, cigarettes, uncomplicated; I16.0 Hypertensive urgency; E87.5 Hyperkalemia; D63.1 Anemia in chronic kidney disease; H54.8 Legal blindness, as defined in USA; E10.22 Type 1 diabetes mellitus with diabetic chronic kidney disease; Z99.2 Dependence on renal dialysis; Z88.6 Allergy status to analgesic agent; Z88.8 Allergy status to other drugs, medicaments and biological substances; Z79.4 Long term (current) use of insulin; Z79.899 Other long term (current) drug therapy; Z87.820 Personal history of traumatic brain injury; Z83.3 Family history of diabetes mellitus; Z82.49 Family history of ischemic heart disease and other diseases of the circulatory system
CPT/HCPCS: 36415; 36416; 36600; 70450; 70496; 70498; 71045; 80048; 80053; 80185; 80307; 82010; 82550; 82553; 82805; 83605; 83735; 83880; 83930; 84100; 84145; 84484; 85025; 85610; 85730; 87505; 90935; 93005; 96375; 96376; G0257; G0378; J0360; J1644; J1815; J1940; J2405; J3490; Q2009; Q9967

== ENCOUNTER 2023-05-17 21:32 | Inpatient (IN) | payer MEDICARE, MEDICAID ==
[2023-05-17 21:58] LABS: #Basophils 0.1 thou/uL (0.0-0.2); #Monocytes 0.7 thou/uL (0.11-0.59); %Basophils 0.8 % (0.0-1.0); %Eosinophils 0.5 % (0.0-10.0); %Lymphocytes 11.7 % (21.0-51.0); %Monocytes 11.2 % (0.0-10.0); %Neutrophils 75.5 % (42.0-75.0); Hematocrit 49.9 % (42.0-52.0); Hemoglobin 15.6 g/dL (14.0-18.0); Mean Corpuscular HGB CONC 31.3 g/dL (32.0-36.0); Mean Corpuscular Hemoglobin 25.4 pg (27.0-31.0); Mean Corpuscular Volume 81.4 fl (78.0-98.0); Platelet Count 174 10x3/uL (130-400); RBC Distribution Width 16.3 % (11.5-14.5); Red Blood Cell (RBC) Count 6.13 mill/uL (4.70-6.10); White Blood Cell (WBC) Count 6.6 10x3/uL (4.8-10.8)
[2023-05-17 22:21] LABS: ALT (SGPT) 19 U/L (8-55); AST (SGOT) 18 U/L (5-34); Alkaline Phosphatase 306 U/L (40-110); Anion Gap 26 mmol/L (10-20); BUN (Urea Nitrogen) 68 mg/dL (8.9-20.6); Bilirubin, Total 0.5 mg/dL (0.2-1.2); Calc. Creatinine Clearance 0 mL/min (70-130); Carbon Dioxide 15 mmol/L (22-29); Chloride 97 mmol/L (98-107); Estimated GFR 5; Globulin 3.1 g/dL (2.4-3.5); Glucose 354 mg/dL (70-105); Protein, Total 7.1 g/dL (6.0-8.3); Sodium 132 mmol/L (136-145)
[2023-05-17 22:27] LABS: Potassium 6.3 mmol/L (3.5-5.1)
[2023-05-17] MEDS ORDERED: Sodium Bicarb 50 MEQ/50 ML VIAL ONE (23:01)
[2023-05-17] MEDS ORDERED: CALCIUM GLUC 1 GM/NS 50 ML BAG ONE (23:01)
[2023-05-17] MEDS ORDERED: Insulin Regular 300 UNITS/3 ML VIAL ONE (23:01)
[2023-05-18] MEDS ORDERED: Dextrose 5% in Water 1,000 ML IV PRN (00:21)
[2023-05-18] MEDS ORDERED: Glucagon 1 MG/ML KIT IM PRN (00:21)
[2023-05-18] MEDS ORDERED: Dextrose 50% Abboject 50 ML SYRINGE SLOW IVP PRN (00:21)
[2023-05-18] MEDS ORDERED: Nicotine 21 MG PATCH TD SCH (00:30)
[2023-05-18] MEDS ORDERED: hydrALAZINE 20 MG/ML VIAL SLOW IVP PRN (00:31)
[2023-05-18] MEDS ORDERED: Ipratropium/Albuterol 3 ML NEB ONE (00:48)
[2023-05-18] MEDS ORDERED: Bacitracin 1 PK ONE (01:14)
[2023-05-18 02:04] LABS: Alcohol Less than 10.0 mg/dL (Less than 10)
[2023-05-18 02:07] LABS: Acetaminophen Less than 10 mcg/mL (10.0-30.0); Salicylate Less than 8.0 mg/dL (15.0-30.0)
[2023-05-18 02:45] VITALS: BMI 28.4
[2023-05-18 04:55] LABS: #Monocytes 0.9 thou/uL (0.11-0.59); #Neutrophils 4.5 thou/uL (1.40-6.50); %Basophils 0.6 % (0.0-1.0); %Eosinophils 0.6 % (0.0-10.0); %Lymphocytes 12.4 % (21.0-51.0); %Monocytes 14.9 % (0.0-10.0); Hematocrit 46.5 % (42.0-52.0); Hemoglobin 14.7 g/dL (14.0-18.0); Mean Corpuscular HGB CONC 31.6 g/dL (32.0-36.0); Mean Corpuscular Hemoglobin 25.2 pg (27.0-31.0); Mean Corpuscular Volume 79.6 fl (78.0-98.0); Mean Platelet Volume 10.7 fL (7.4-10.4); Platelet Count 157 10x3/uL (130-400); RBC Distribution Width 15.6 % (11.5-14.5); Red Blood Cell (RBC) Count 5.84 mill/uL (4.70-6.10); White Blood Cell (WBC) Count 6.3 10x3/uL (4.8-10.8)
[2023-05-18 05:02] LABS: Dilantin 9.2 ug/mL (10.0-20.0)
[2023-05-18 05:22] LABS: ALT (SGPT) 17 U/L (8-55); AST (SGOT) 13 U/L (5-34); Albumin 3.7 g/dL (3.5-5.0); Alkaline Phosphatase 286 U/L (40-110); Anion Gap 17 mmol/L (10-20); BUN (Urea Nitrogen) 40 mg/dL (8.9-20.6); Bilirubin, Total 0.5 mg/dL (0.2-1.2); Calc. Creatinine Clearance 14 mL/min (70-130); Calcium 8.6 mg/dL (7.8-10.44); Carbon Dioxide 25 mmol/L (22-29); Chloride 98 mmol/L (98-107); Estimated GFR 8; Globulin 3.3 g/dL (2.4-3.5); Glucose 85 mg/dL (70-105); Sodium 136 mmol/L (136-145)
[2023-05-18] MEDS: Mometasone 200 MCG/Formoterol 5 MCG 120 PUFF INHALER INH SCH ×2 (06:16→18:59)
[2023-05-18] MEDS ORDERED: Carvedilol 25 MG TAB PO SCH ×2 (08:00→09:00)
[2023-05-18] MEDS ORDERED: Torsemide 100 MG TAB PO SCH (09:00)
[2023-05-18] MEDS ORDERED: Gabapentin 100 MG CAP PO SCH (09:00)
[2023-05-18] MEDS ORDERED: Phenytoin Extended Release 100 MG CAP PO SCH (09:00)
[2023-05-18] MEDS ORDERED: Famotidine 20 MG TAB PO SCH (09:00)
[2023-05-18] MEDS ORDERED: cloNIDine 0.2mg/24 Hour PATCH TD SCH (09:00)
[2023-05-18] MEDS ORDERED: hydrALAZINE 25 MG TAB PO SCH (09:00)
[2023-05-18] MEDS ORDERED: Metoclopramide HCl 10 MG TAB PO SCH (09:00)
[2023-05-18] MEDS: hydrALAZINE 20 MG/ML VIAL SLOW IVP PRN ×2 (09:07→17:31)
[2023-05-18] MEDS ORDERED: Vancomycin 1 GM in Premix Bag 1 BAG IVPB SCH (09:30)
[2023-05-18] MEDS ORDERED: Labetalol HCl 100 MG/20 ML VIAL SLOW IVP SCH (09:45)
[2023-05-18] MEDS ORDERED: Furosemide 100 MG in Sodium Chloride 0.9% 90 ML IVPB SCH (10:00)
[2023-05-18 10:03] LABS: Actual Bicarbonate (HCO3a) 27.2 mEq/L (22-28); Base Excess (BEa) 0.6 mEq/L (-2.0 to +3.0); CO2 Tension 50.6 mmHg (35.0-45.0); Calcium, Ionized (arterial) 1.12 mmol/L (1.12-1.30); Carboxyhemoglobin (COHb) 6.6 gm% (0.0-3.0); Hematocrit-ABG 46 % (42.0-52.0); Hemoglobin (Hb) 15.5 g/dL (14.0-18.0); O2 Tension (PaO2), arterial 107.9 mmHg (80.0-100.0); pH, Arterial 7.348 (7.35-7.45)
[2023-05-18 10:06] LABS: Puncture Site LFA
[2023-05-18] MEDS ORDERED: Furosemide 100 MG, Admixture Fee 1 EACH in Sodium Chloride 0.9% 90 ML IVPB SCH (10:15)
[2023-05-18 10:42] LABS: Glucose 103 mg/dL (70-105)
[2023-05-18 10:51] LABS: Troponin I 1.147 ng/mL (< 0.028)
[2023-05-18 11:50] LABS: Glucose 86 mg/dL (70-105)
[2023-05-18] MEDS: Insulin Glargine 30 UNITS/0.3 ML VIAL SC SCH (11:50)
[2023-05-18] MEDS ORDERED: Morphine 2 MG/ML VIAL SLOW IVP PRN (12:08)
[2023-05-18] MEDS: Amlodipine 10 MG TAB PO SCH (12:30)
[2023-05-18] MEDS: Atorvastatin Calcium 40 MG TAB PO SCH (12:31)
[2023-05-18] MEDS: Metoclopramide HCl 10 MG/2 ML VIAL IVP SCH ×3 (12:32→21:10)
[2023-05-18] MEDS ORDERED: Heparin 10,000 UNITS/ 10 ML VIAL ONE (12:34)
[2023-05-18 12:39] LABS: Glucose 78 mg/dL (70-105)
[2023-05-18 13:39] LABS: Glucose 175 mg/dL (70-105)
[2023-05-18 14:47] LABS: Glucose 248 mg/dL (70-105)
[2023-05-18 15:32] LABS: Glucose 261 mg/dL (70-105)
[2023-05-18 16:34] LABS: Glucose 248 mg/dL (70-105)
[2023-05-18] MEDS: Labetalol HCl 100 MG/20 ML VIAL SLOW IVP SCH ×2 (17:17→21:13)
[2023-05-18 19:06] LABS: Glucose 297 mg/dL (70-105)
[2023-05-18] MEDS ORDERED: levETIRAcetam 500 MG/5 ML VIAL SLOW IVP SCH ×2 (21:00)
[2023-05-18] MEDS: levETIRAcetam 500 MG/5 ML VIAL SLOW IVP SCH (21:11)
[2023-05-18] MEDS: HumaLOG 300 UNITS/3 ML VIAL SC PRN (21:19)
[2023-05-18] MEDS ORDERED: Acetaminophen 325 MG TAB PO PRN (22:24)
[2023-05-18] MEDS ORDERED: Melatonin 3 MG TAB PO SCH (22:30)
[2023-05-19] MEDS: Labetalol HCl 100 MG/20 ML VIAL SLOW IVP SCH ×6 (01:13→17:46)
[2023-05-19] MEDS ORDERED: Ondansetron ODT 4 MG TAB PO PRN (01:35)
[2023-05-19] MEDS: Ondansetron PF 4 MG/2 ML Vial IVP PRN ×2 (01:54→12:42)
[2023-05-19] MEDS: hydrALAZINE 20 MG/ML VIAL SLOW IVP PRN (03:15)
[2023-05-19 05:01] LABS: #Basophils 0.1 thou/uL (0.0-0.2); #Eosinphils 0.1 thou/uL (0.0-0.7); #Neutrophils 5.8 thou/uL (1.40-6.50); %Basophils 0.8 % (0.0-1.0); %Eosinophils 1.2 % (0.0-10.0); %Lymphocytes 7.8 % (21.0-51.0); %Monocytes 13.1 % (0.0-10.0); %Neutrophils 76.8 % (42.0-75.0); Hematocrit 47.8 % (42.0-52.0); Hemoglobin 15.1 g/dL (14.0-18.0); Mean Corpuscular HGB CONC 31.6 g/dL (32.0-36.0); Mean Corpuscular Volume 79.1 fl (78.0-98.0); Mean Platelet Volume 10.7 fL (7.4-10.4); Platelet Count 145 10x3/uL (130-400); RBC Distribution Width 15.8 % (11.5-14.5); Red Blood Cell (RBC) Count 6.04 mill/uL (4.70-6.10); White Blood Cell (WBC) Count 7.6 10x3/uL (4.8-10.8)
[2023-05-19 05:28] LABS: ALT (SGPT) 14 U/L (8-55); AST (SGOT) 10 U/L (5-34); Albumin 3.5 g/dL (3.5-5.0); Alkaline Phosphatase 261 U/L (40-110); Anion Gap 19 mmol/L (10-20); BUN (Urea Nitrogen) 38 mg/dL (8.9-20.6); Bilirubin, Total 0.5 mg/dL (0.2-1.2); Calc. Creatinine Clearance 12 mL/min (70-130); Calcium 8.2 mg/dL (7.8-10.44); Carbon Dioxide 22 mmol/L (22-29); Chloride 93 mmol/L (98-107); Estimated GFR 7; Globulin 3.1 g/dL (2.4-3.5); Potassium 5.3 mmol/L (3.5-5.1); Protein, Total 6.6 g/dL (6.0-8.3); Sodium 129 mmol/L (136-145)
[2023-05-19 05:35] LABS: Glucose 402 mg/dL (70-105)
[2023-05-19] MEDS ORDERED: hydrOXYzine 25 MG TAB PO SCH (06:15)
[2023-05-19] MEDS: Mometasone 200 MCG/Formoterol 5 MCG 120 PUFF INHALER INH SCH ×2 (07:09→18:49)
[2023-05-19] MEDS: Amlodipine 10 MG TAB PO SCH (08:34)
[2023-05-19] MEDS: Atorvastatin Calcium 40 MG TAB PO SCH (08:34)
[2023-05-19] MEDS: Insulin Glargine 30 UNITS/0.3 ML VIAL SC SCH (08:35)
[2023-05-19] MEDS: levETIRAcetam 500 MG/5 ML VIAL SLOW IVP SCH (08:35)
[2023-05-19] MEDS: HumaLOG 300 UNITS/3 ML VIAL SC PRN (08:37)
[2023-05-19] MEDS: Metoclopramide HCl 10 MG/2 ML VIAL IVP SCH ×2 (08:37→16:30)
[2023-05-19 11:24] VITALS: TEMP 97.6
[2023-05-19] MEDS ORDERED: Heparin 10,000 UNITS/ 10 ML VIAL ONE (12:31)
[2023-05-19] MEDS ORDERED: levETIRAcetam 500 MG/5 ML VIAL SLOW IVP SCH (17:00)
[2023-05-19] MEDS ORDERED: Carvedilol 25 MG TAB PO SCH (17:00)
[2023-05-19 17:47] VITALS: BP 144/84
[2023-05-19] MEDS ORDERED: hydrALAZINE 25 MG TAB PO SCH (21:00)
== END 2023-05-19 19:02 | disposition left against medical advice (07) | DRG 100 ==
LOC: ERS 21:32 → IMCU/EMU 23:13
PROVIDERS: ADMIT Emergency Medicine; ATTEND Emergency Medicine
PROC: 5A1D70Z Performance of Urinary Filtration, Intermittent, Less than 6 Hours Per Day (ICD-10-PCS; principal; 2023-05-18)
PROC: 4A033R1 Measurement of Arterial Saturation, Peripheral, Percutaneous Approach (ICD-10-PCS; 2023-05-18)
DX: G40.909 Epilepsy, unspecified, not intractable, without status epilepticus (principal); J96.01 Acute respiratory failure with hypoxia; N18.6 End stage renal disease; T23.322A Burn of third degree of single left finger (nail) except thumb, initial encounter; I12.0 Hypertensive chronic kidney disease with stage 5 chronic kidney disease or end stage renal disease; E87.20 Acidosis, unspecified; E10.22 Type 1 diabetes mellitus with diabetic chronic kidney disease; E10.65 Type 1 diabetes mellitus with hyperglycemia; E87.5 Hyperkalemia; K21.9 Gastro-esophageal reflux disease without esophagitis; F17.210 Nicotine dependence, cigarettes, uncomplicated; H54.8 Legal blindness, as defined in USA; E87.70 Fluid overload, unspecified; E10.42 Type 1 diabetes mellitus with diabetic polyneuropathy; E10.39 Type 1 diabetes mellitus with other diabetic ophthalmic complication; F19.10 Other psychoactive substance abuse, uncomplicated; I16.0 Hypertensive urgency; T23.222A Burn of second degree of single left finger (nail) except thumb, initial encounter; T31.0 Burns involving less than 10% of body surface; Z99.2 Dependence on renal dialysis; Z88.8 Allergy status to other drugs, medicaments and biological substances; Z91.158 Patient's noncompliance with renal dialysis for other reason; Z79.899 Other long term (current) drug therapy; Z79.4 Long term (current) use of insulin; Z98.49 Cataract extraction status, unspecified eye; Z82.49 Family history of ischemic heart disease and other diseases of the circulatory system; Z83.3 Family history of diabetes mellitus; D63.1 Anemia in chronic kidney disease
CPT/HCPCS: 36415; 36416; 70450; 70551; 71045; 80053; 80185; 80307; 82010; 82805; 83880; 84484; 85025; 93005; 93306; 94640; 96365; 96366; 96375; 97139; J0360; J0613; J1815; J1953; J2405; J2765; J3370-JW; J7620

== ENCOUNTER 2023-06-05 14:46 | Emergency (ER) | payer MEDICARE, MEDICAID ==
[2023-06-05] MEDS ORDERED: Dextrose 50% Abboject 50 ML SYRINGE ONE (14:48)
[2023-06-05] MEDS ORDERED: Sodium Bicarb 50 MEQ/50 ML Abboject 8.4% SYRINGE ONE (14:48)
[2023-06-05] MEDS ORDERED: EPINEPHrine 1 MG/10 ML Abboject SYRINGE ONE (14:48)
[2023-06-05] MEDS ORDERED: Calcium Chloride 1 GM/10 ML Abboject SYRINGE ONE (14:48)
== END 2023-06-05 15:00 | disposition expired ==
LOC: ERS 14:46
DX: I46.9 Cardiac arrest, cause unspecified (principal); I12.0 Hypertensive chronic kidney disease with stage 5 chronic kidney disease or end stage renal disease; N18.6 End stage renal disease; E10.22 Type 1 diabetes mellitus with diabetic chronic kidney disease; E78.5 Hyperlipidemia, unspecified; Z99.2 Dependence on renal dialysis
CPT/HCPCS: 92950; 96374; J0171; J7999